=== PATIENT | male | born 1945 | race Caucasian/White ===

== ENCOUNTER 2019-02-20 09:17 | Emergency (ER) | payer OTHER, MEDICAID ==
[~2019-02-20] VITALS: Ht 167.6 cm; Wt 53.1 kg
[~2019-02-20 09:17] MED LIST: COL100 PO; DIO160 PO; HYD25 PO; NOR10T PO; NOR5 PO
[2019-02-20 09:40] VITALS: Ht 167.6 cm; Wt 53.1 kg
[2019-02-20 14:35] VITALS: BP 144/71
== END 2019-02-20 14:35 | disposition home or self-care (01) ==
LOC: ED 09:17
DX: S82.144A Nondisplaced bicondylar fracture of right tibia, initial encounter for closed fracture (principal); X58.XXXA Exposure to other specified factors, initial encounter; Y93.89 Activity, other specified; Y92.89 Other specified places as the place of occurrence of the external cause; Y99.8 Other external cause status

== ENCOUNTER 2019-04-10 16:46 | Emergency (ER) | payer OTHER ==
[~2019-04-10] VITALS: Ht 172.7 cm; Wt 51.3 kg
[2019-04-10 17:06] VITALS: Ht 172.7 cm; Wt 51.3 kg
[2019-04-10 18:02] LABS: BASOPHIL % 0.2 % (0-2); PLATELET COUNT 170 x10^3mcL (130-400)
[2019-04-10 18:06] LABS: RED CELL DISTRIBUTION WIDTH 15.7 % (11.5-14.5)
[2019-04-10 18:19] LABS: CALCIUM 8.6 mg/dL (8.5-10.1); CARBON DIOXIDE 23.1 mmol/L (21-32); CHLORIDE SERUM 101 mmol/L (98-107); CREATININE SERUM 0.8 mg/dL (0.7-1.3); GLUCOSE SERUM 194 mg/dL (74-106); POTASSIUM SERUM 3.6 mmol/L (3.5-5.1); SODIUM SERUM 136 mmol/L (136-145)
[2019-04-10 18:33] LABS: ALBUMIN 3.5 g/dL (3.4-5.0); ALKALINE PHOSPHATASE 56 U/L (46-116); ALT/SGPT 18 U/L (16-63); AST/SGOT 14 U/L (15-37); BILIRUBIN TOTAL 0.3 mg/dL (0.20-1.00); LIPASE 137 IU/L (73-393); TOTAL PROTEIN, SERUM 7.7 g/dL (6.4-8.2)
[2019-04-10 22:52] VITALS: BP 143/80
== END 2019-04-10 22:10 | disposition left against medical advice (07) ==
LOC: ED 16:46
PROVIDERS: Emergency Medicine
DX: R10.13 Epigastric pain (principal); R10.30 Lower abdominal pain, unspecified; R11.2 Nausea with vomiting, unspecified; F17.210 Nicotine dependence, cigarettes, uncomplicated; Z71.6 Tobacco abuse counseling
CPT/HCPCS: 99406; J2405; J3010; J3490; Q0092; Q9967

== ENCOUNTER 2019-05-11 08:14 | Emergency (ER) | payer OTHER ==
[~2019-05-11] VITALS: Ht 170.2 cm; Wt 50.3 kg
[2019-05-11 08:25] VITALS: Ht 170.2 cm; Wt 50.3 kg
[2019-05-11 09:09] LABS: BASOPHIL % 0.7 % (0-2)
[2019-05-11 09:16] LABS: PLATELET COUNT 81 x10^3mcL (130-400); RED CELL DISTRIBUTION WIDTH 15.4 % (11.5-14.5)
[2019-05-11 09:25] LABS: ALBUMIN 3.4 g/dL (3.4-5.0); ALKALINE PHOSPHATASE 49 U/L (46-116); ALT/SGPT 17 U/L (16-63); AST/SGOT 20 U/L (15-37); BILIRUBIN TOTAL 0.8 mg/dL (0.20-1.00); CARBON DIOXIDE 31.8 mmol/L (21-32); CHLORIDE SERUM 99 mmol/L (98-107); GLUCOSE SERUM 129 mg/dL (74-106); LIPASE 102 IU/L (73-393); POTASSIUM SERUM 3.8 mmol/L (3.5-5.1); SODIUM SERUM 136 mmol/L (136-145); TOTAL PROTEIN, SERUM 7.4 g/dL (6.4-8.2)
[2019-05-11 09:37] LABS: CALCIUM 9.3 mg/dL (8.5-10.1)
[2019-05-11 14:40] VITALS: BP 129/71
== END 2019-05-11 14:40 | disposition short-term general hospital (02) ==
LOC: ED 08:14
PROVIDERS: Emergency Medicine
DX: I71.02 Dissection of abdominal aorta (principal); I10 Essential (primary) hypertension; Z90.89 Acquired absence of other organs; Z98.890 Other specified postprocedural states
CPT/HCPCS: J2270; J2405; J7030; Q9967

== ENCOUNTER 2019-07-01 19:15 | Emergency (ER) | payer OTHER ==
[~2019-07-01] VITALS: Ht 182.9 cm; Wt 52.2 kg
[2019-07-01 19:18] VITALS: Ht 182.9 cm; Wt 52.2 kg
[2019-07-01 20:05] LABS: BASOPHIL % 0.2 % (0-2); PLATELET COUNT 264 x10^3mcL (130-400); RED CELL DISTRIBUTION WIDTH 16.2 % (11.5-14.5)
[2019-07-01 20:21] LABS: CALCIUM 9.9 mg/dL (8.5-10.1); CHLORIDE SERUM 101 mmol/L (98-107); CREATININE SERUM 0.8 mg/dL (0.7-1.3); GLUCOSE SERUM 207 mg/dL (74-106); POTASSIUM SERUM 3.3 mmol/L (3.5-5.1); SODIUM SERUM 141 mmol/L (136-145)
[2019-07-01 20:26] LABS: ALBUMIN 4.2 g/dL (3.4-5.0); ALKALINE PHOSPHATASE 52 U/L (46-116); ALT/SGPT 23 U/L (16-63); AST/SGOT 17 U/L (15-37); BILIRUBIN TOTAL 0.3 mg/dL (0.20-1.00); CHOLESTEROL 168 mg/dL (<200); CHOLESTEROL/HDL RATIO 3.3; HDL CHOLESTEROL 51 mg/dL (40-60); LIPASE 94 IU/L (73-393); TOTAL PROTEIN, SERUM 8.2 g/dL (6.4-8.2); TRIGLYCERIDES 100 mg/dL (<150)
[2019-07-01 20:44] LABS: T3 TOTAL 1.2 ng/mL
[2019-07-01 20:46] LABS: FREE T4 1.08 ng/dL (0.76-1.46); FREE THYROXINE INDEX 3.2 ug/dL (1.4-4.5); T4(THYROXINE) 10.2 ug/dL (4.7-13.3)
[2019-07-01 22:46] LABS: microscopic required? YES; urine erythrocyte TRACE (NEGATIVE)
[2019-07-02 02:11] VITALS: BP 158/83
== END 2019-07-02 02:12 | disposition short-term general hospital (02) ==
LOC: ED 19:15
PROVIDERS: Specialist
DX: K56.609 Unspecified intestinal obstruction, unspecified as to partial versus complete obstruction (principal); I16.0 Hypertensive urgency; Z90.49 Acquired absence of other specified parts of digestive tract
CPT/HCPCS: 83880; 84439; J0694; J2270; J2405; J3010; J3490; J7030; Q0092; Q9967